=== PATIENT | female | born 1960 | race Caucasian/White ===

== ENCOUNTER 2021-03-29 10:45 | Emergency (ER) | payer SELFPAY ==
[2021-03-29 10:51] VITALS: BP 104/62; PULSE 77; RESP 17; TEMP 36.6; O2SAT 91; BMI 24.3
[2021-03-29 11:01] VITALS: BP 96/67; PULSE 83; RESP 17; O2SAT 93
--- NOTE | 2021-03-29 11:05 | ECG_ITS ---
[facility] Test Date: 2021-03-29 Pat Name: Lurdes Syed Department: Room: Gender: Female Cso: : 1960 Requested By: Jeffrey Yee Order Number: [id number] Nena Jennings MD: Alley Valles M.D. Measurements Intervals [place] Rate: 68 P: 20 MS: 168 QRS: 39 QRSD: 105 T: 56 QT: 427 QTc: 454 Interpretive Statements SINUS RHYTHM No previous ECG available for comparison Electronically Signed On 03-30-2021 13:18:38 PROPERTY UTILIZATION OFFICER by Alley Valles M.D. [id number]
--- NOTE | 2021-03-29 11:05 | XRR_ITS ---
PROCEDURE INFORMATION: Exam: XR Chest Exam date and time: 03/29/2021 11:05 AM Age: 60 years old Clinical indication: Shortness of breath; Additional info: SOB TECHNIQUE: Imaging protocol: XR of the chest. Views: 1 view. Total images: 1 COMPARISON: No relevant prior studies available. FINDINGS: Lungs: Diffuse coarse interstitial markings of the lungs felt to be chronic. No prior exams available for comparison. Trace atelectasis or scar noted in the left lung base. Pleural spaces: There is blunting of the right costophrenic angle, likely indicating a small pleural effusion versus chronic pleural thickening. Heart/Mediastinum: Unremarkable. No cardiomegaly. Bones/joints: Diffuse osteopenia noted. XR/XR chest 1V portable [id number] IMPRESSION: 1. Diffuse coarse interstitial markings of the lungs felt to be chronic. No prior exams available for comparison. 2. Trace atelectasis or scar noted in the left lung base. 3. There is blunting of the right costophrenic angle, likely indicating a small pleural effusion versus chronic pleural thickening. Radiation Dose CTDIVOL = (mGy): DLP = (mGy-cm)
--- NOTE | 2021-03-29 11:08 | ED_ITS ---
HPI - SOB/Dyspnea General: Chief Complaint: Shortness of Breath/Dyspnea Stated Complaint: SOB; WEAKNESS; COVID EXPOSURE Time Seen by Provider: 03/29/21 10:55 History of Present Illness: HPI Narrative: This patient presents to our emergency department because of progressive generalized fatigue and weakness and sensation of shortness of breath. She states her symptoms onset of Wednesday of this week with generalized body aches and low-grade fever and have progressed since that time. She denies any chest pain. She denies fevers. She is unimmunized against COVID-19. Her is currently in the intensive care unit due to COVID-19 related illness. He became ill on approximately 13 March. He is also unimmunized. She does not have a history of any significant comorbid medical conditions to include COPD, heart failure etc. She is a non-smoker. She states she has been eating and drinking some but feels extremely fatigued. She is currently living alone but does have family in the area. She states her pulse oximeter at home has been low as the high 80s. MD elicited complaint: shortness of breath Timing: progressively worsening Associated symptoms: Reports extremity pain; Deny abdominal pain, chest pain, dizziness, fever(s), nausea, palpitations, polydipsia, polyuria or vomiting Review of Systems Const: Reports: fatigue and malaise; Denies: fever(s), change in appetite or change in weight Eyes: Denies: change in vision ENMT: Denies: throat pain, odynophagia, mouth pain or dental pain Card: Denies: chest pain, palpitations, irregular heart rhythm or edema Resp: Reports: dyspnea; Denies: productive cough, non-productive cough, wheezing or stridor GI: Reports: diarrhea; Denies: abdominal pain, nausea or vomiting : Denies: flank pain, difficulty voiding or dysuria Musc: Reports: back pain, extremity pain and joint pain; Denies: neck pain Skin/Breast: Denies: rash Neuro: Denies: headache(s), dizziness, vertigo, confusion, behavioral changes or Slurred speech present Psych: Denies: anxiety, depression, mood swings or panic attacks Endo: Denies: polyuria, polydipsia or tired all the time Physical Exam Const: COMMON NORMALS: no acute distress, patient oriented x3 and alert HENMT: COMMON NORMALS: normocephalic and Normal external nose present HEAD & SCALP: normal to inspection and normocephalic FACE & SINUS: normal facial exam NOSE: Normal external nose present TEETH & GINGIVA: Yes other (Mask per protocol) Eye: COMMON NORMALS: Equal, round and reactive pupils present, EOMs intact bilaterally and conjunctivae normal CONJUNCTIVA: Yes conjunctivae normal PUPIL: Yes Equal, round and reactive pupils present Neck/C-Spine: COMMON NORMALS: full ROM, no lymphadenopathy, supple, no meningeal signs and no JVD Lymph: LYMPHATIC: no lymphadenopathy noted Chest: COMMONS NORMALS: normal inspection of the chest and normal palpation of entire chest wall Resp: COMMON NORMALS: normal respiratory effort, No retractions, No use of accessory muscles and clear to auscultation bilaterally AUSCULTATION: clear to auscultation bilaterally, no crackles, no rhonchi and no wheezes Cardio: COMMON NORMALS: no JVD, regular rate, regular rhythm, No murmurs pr esent (Cardio) and Peripheral pulses 2+ throughout RATE: regular rate RHYTHM: regular rhythm PERIPHERAL PULSES: Peripheral pulses 2+ throughout GI: COMMON NORMALS: Normal to inspection, nondistended, normoactive bowel sounds present, Soft to palpation, non-tender and no masses PALPATION: Yes Soft to palpation : COMMON NORMALS: Yes no CVA tenderness BLADDER/KIDNEY EXAM: Yes no CVA tenderness Back/Pelvis: COMMON NORMALS: no CVA tenderness, thoracic and lumbar spine normal to inspection, no thoracic nor lumbar tenderness and thoraco-lumbar ROM normal Extremity: COMMON NORMALS: normal to inspection, full ROM, capillary refill normal, no joint enlargement, no calf tenderness and no pedal edema Neuro: COMMON NORMALS: patient oriented x3, moves all extremities, no focal motor deficits and no sensory deficits noted SENSORIUM/ORIENTATION: Yes alert MENINGEAL SIGNS: Yes no meningeal signs Psych: COMMON NORMALS: mental status grossly normal, Normal thought process present and cooperative THOUGHT PROCESS: Normal thought process present Skin: COMMON NORMALS: no rashes or lesions noted, no wounds, turgor normal and no jaundice GENERAL SKIN EXAM: no rashes or lesions noted and turgor normal Course Reevaluation(s): Reevaluation #1: Patient qualifies for home oxygen at 2 L. We will go ahead and give her a dose of Decadron at this time. She will not qualify for monoclonal antibody due to her oxygen requirements. Time: 13:42 Reevaluation #2: The patient remains clinically stable. She easily corrects with 2 L of oxygen into the mid 90s at rest. Her laboratories are consistent with her COVID-19 diagnosis. Her D-dimer is slightly elevated but again that is consistent with diagnosis and I do not feel that additional imaging is indicated for thromboembolic disease at this time. She looks comfortable and is amenable to home treatment. I have reviewed the potential course in detail with the patient to include increasing oxygen requirements etc. and the need to return immediately to the emergency department for reevaluation and additional care as indicated. We will continue her on steroids for the next 7 days. She acknowledged our discussion. She is stable at this time. All return precautions were reviewed and acknowledged. Vital Signs: Vital signs: Vital Signs Temperature 98 F 03/29/21 10:51 Pulse Rate 70 03/29/21 12:59 Respiratory Rate 16 03/29/21 12:59 Blood Pressure 103/65 03/29/21 12:59 Pulse Oximetry 97 03/29/21 12:59 MDM - SOB/Dyspnea Lab Data: Labs: Lab Results 03/29/21 03/29/21 03/29/21 11:12 11:12 11:12 WBC 3.5 10^3/uL L 10^ 3/uL (4.0-10.0) RBC 4.24 10^6/uL 10^6 /uL (4.1-5.3) Hgb 12.1 g/dL g/dL (11.5-15.3) Hct 37.3 % % (37.0-47.0) MCV 88.0 fl fl (81-99) MCH 28.5 pg pg (28.0-34.0) MCHC 32.4 g/dL g/dL (30.0-36.0) RDW 13.4 % % (12.1-15.1) Plt Count 142 10^3/cmm 10^3 /cmm (130-400) MPV 10.1 fL fL (7.4-10.4) Neut % (Auto) 73.1 % % Lymph % (Auto) 18.5 % % [place] % (Auto) 7.8 % % Eos % (Auto) 0.0 % % Baso % (Auto) 0.3 % % Neut # (Auto) 2.53 10^3/uL 10^3 /uL (1.8-7.7) Lymph # (Auto) 0.6 10^3/uL L 10^ 3/uL (0.8-4.8) [place] # (Auto) 0.3 10^3/uL 10^3/ uL (0.2-0.9) Eos # (Auto) 0.0 10^3/uL 10^3/ uL (0.0-0.8) Baso # (Auto) 0.0 10^3/uL 10^3/ uL (0.0-0.1) Nucleated RBC % (a uto) 0 % % Nucleated RBCs # 0.0 /100WBC /100W BC D-Dimer 0.71 ug/mIFEU H u g/mIFEU (0-0.59) Sodium 129 mmol/L L mmol /L (136-145) Potassium 3.7 mmol/L mmol/L (3.5-5.1) Chloride 95 mmol/L L mmol/ L (98-107) Carbon Dioxide 20 mmol/L L mmol/ L (22-29) Anion Gap 17.7 (5-19) BUN 9 mg/dL mg/dL (8-23) Creatinine 0.7 mg/dL mg/dL (0.5-0.9) GFR Calculation 85.1 mL/min L mL/ min (90-130) Glucose 110 mg/dL mg/dL (65-115) Calculated Osmolal ity 267 mOsm/kg L mOs m/kg (285-295) Calcium 8.2 mg/dL L mg/dL (8.5-10.5) Magnesium 1.7 mg/dL mg/dL (1.7-2.3) Ferritin Total Bilirubin 0.4 mg/dL mg/dL (0.15-1.2) AST 36 U/L H U/L (0-32) ALT 34 U/L H U/L (0-33) Alkaline Phosphata se 91 IU/L IU/L (35-105) C-Reactive Protein Total Protein 6.5 g/dL L g/dL (6.6-8.7) Albumin 3.5 g/dL g/dL (3.5-5.2) Globulin 3.0 g/dL g/dL (1.3-4.6) Influenza Type A A g Influenza Type B A g SARS-CoV-2 Ag (Rap id) 03/29/21 03/29/21 03/29/21 11:12 11:15 11:15 WBC RBC Hgb Hct MCV MCH MCHC RDW Plt Count MPV Neut % (Auto) Lymph % (Auto) [place] % (Auto) Eos % (Auto) Baso % (Auto) Neut # (Auto) Lymph # (Auto) [place] # (Auto) Eos # (Auto) Baso # (Auto) Nucleated RBC % (a uto) Nucleated RBCs # D-Dimer Sodium Potassium Chloride Carbon Dioxide Anion Gap BUN Creatinine GFR Calculation Glucose Calculated Osmolal ity Calcium Magnesium Ferritin 862 ng/mL H ng/mL (15-150) Total Bilirubin AST ALT Alkaline Phosphata se C-Reactive Protein 30.3 mg/L H mg/L (0.0-4.9) Total Protein Albumin Globulin Influenza Type A A g Negative (Negative) Influenza Type B A g Negative (Negative) SARS-CoV-2 Ag (Rap id) Positive H (Negative) EKG Data^: EKG 1: Attestation: I personally reviewed and interpreted this EKG as follows: (EKG shows a ventricular rate of 68 bpm. Normal intervals normal axes. No acute ST- T wave changes noted at this time.) Discharge Plan Discharge Clinical Impression: COVID-19 Condition: Stable Prescriptions: New dexamethasone 6 mg tablet 6 mg PO DAILY Qty: 7 RF: 0 Discharge Orders: Discharge ED (Routine); Ordered 03/29/21 Ordered By: Jeffrey Yee Other Ambulatory Orders: DME: Oxygen (Order) Location: None Selected Ordered By: Jeffrey Yee Referrals: Stephen Mckeon JR, MD [Primary Care Provider] - Discharge Diet: Usual diet Discharge Activity: Increase activity as tolerated and Oxygen as instructed Patient Instructions: How to Recover from COVID-19 at Home (ED) Activity Restrictions/Additional Instructions: Ensure that you are drinking at least 64 ounces of water a day in addition to sports drinks and other protein drinks. Monitor your oxygen level using the pulse oximeter. Wear your oxygen if your pulse oximetry is less than 90%. You may also change positions of sleeping such as sleeping on one side or the other or sleeping on your stomach to help improve your oxygen level. If it anytime your have increasing concerns, increasing shortness of breath, or consistently below 90% even with your oxygen return to this emergency department immediately. Take the dexamethasone as prescribed. Coding Level of Care Code ED Putty Worker for Sonali Fwgayla Exam Comprehensive
[2021-03-29] MEDS: sodium chloride 0.9% 1,000 ML 999 ML IV (11:25)
[2021-03-29 11:40] LABS: Basophils % 0.3 %; Hematocrit 37.3 % (37.0-47.0); Hemoglobin 12.1 g/dL (11.5-15.3); Lymphocytes # 0.6 10^3/uL (0.8-4.8); Lymphocytes % 18.5 %; Mean Corpuscular HGB Conc 32.4 g/dL (30.0-36.0); Mean Corpuscular Hemoglobin 28.5 pg (28.0-34.0); Mean Platelet Volume 10.1 fL (7.4-10.4); Monocytes # 0.3 10^3/uL (0.2-0.9); Monocytes % 7.8 %; Neutrophils # 2.53 10^3/uL (1.8-7.7); Neutrophils % 73.1 %; Nucleated Red Blood Cells % 0 %; Platelet Count 142 10^3/cmm (130-400); Red Blood Count 4.24 10^6/uL (4.1-5.3); Red Cell Distribution Width 13.4 % (12.1-15.1); White Blood Count 3.5 10^3/uL (4.0-10.0)
[2021-03-29 11:51] VITALS: BP 105/65; PULSE 70; RESP 17; O2SAT 93
--- NOTE | 2021-03-29 11:52 | PC.NURSE ---
Pt placed on tabular typist upon being bedded in room.
[2021-03-29 11:55] LABS: D Dimer 0.71 ug/mIFEU (0-0.59)
[2021-03-29 12:00] LABS: Alanine Aminotransferase 34 U/L (0-33); Albumin Level 3.5 g/dL (3.5-5.2); Alkaline Phosphatase 91 IU/L (35-105); Anion Gap 17.7 (5-19); Aspartate Amino Transferase 36 U/L (0-32); Blood Urea Nitrogen 9 mg/dL (8-23); Calcium 8.2 mg/dL (8.5-10.5); Carbon Dioxide 20 mmol/L (22-29); Chloride 95 mmol/L (98-107); Glomerular Filtration Rate 85.1 mL/min (90-130); Glucose 110 mg/dL (65-115); Magnesium 1.7 mg/dL (1.7-2.3); Osmolality Calculated 267 mOsm/kg (285-295); Potassium 3.7 mmol/L (3.5-5.1); Sodium 129 mmol/L (136-145); Total Bilirubin 0.4 mg/dL (0.15-1.2); Total Protein 6.5 g/dL (6.6-8.7)
[2021-03-29 12:14] LABS: Influenza A by IFA Negative (Negative); Influenza B by IFA Negative (Negative); SARS Covid-2 Antigen Positive (Negative)
[2021-03-29 12:30] VITALS: O2SAT 88; O2SAT 92; O2SAT 93
[2021-03-29 12:32] LABS: C Reactive Protein 30.3 mg/L (0.0-4.9); Ferritin 862 ng/mL (15-150)
[2021-03-29] MEDS: dexamethasone 10 mg/mL INJ 6 MG IVP (12:55)
[2021-03-29 12:59] VITALS: BP 103/65; PULSE 70; RESP 16; O2SAT 97
[2021-03-29 14:08] VITALS: BP 102/68; PULSE 69; RESP 20; O2SAT 97
== END 2021-03-29 14:20 | disposition home or self-care (01) ==
PROVIDERS: Emergency Provider Emergency Medicine
DX: U07.1 COVID-19 (principal)
CPT/HCPCS: 71045; 80053; 82728; 83735; 85025; 85378; 86140; 87426; 87804; 93005; 96361; 96374; 99284; J1100; J7030

== ENCOUNTER 2021-04-01 08:18 | Emergency (ER) | payer SELFPAY ==
--- NOTE | 2021-04-01 08:21 | XR_ITS ---
WS: [id number] Exam: XR chest 1V portable [id number] Date/Time of Exam: 04/01/2021 8:38 AM Reason For Exam: COVID Comparison 03/29/2021. Patchy groundglass infiltrates in the right upper lobe and lingula have increased. Remaining lung fie lds are clear. No pneumothorax or pleural effusion. Normal cardiomediastinal silhouette. Regional bon y structures are intact. XR/XR chest 1V portable [id number] IMPRESSION: 1. Increasing groundglass infiltrates in the right upper lobe and lingula since prior study.
[2021-04-01 08:30] VITALS: BP 92/50; PULSE 81; RESP 18; TEMP 36.9; O2SAT 96; BMI 24.3
[2021-04-01 08:37] VITALS: BP 92/50; PULSE 81; O2SAT 97
[2021-04-01 08:38] VITALS: O2SAT 97
[2021-04-01 09:16] LABS: Hematocrit 40.6 % (37.0-47.0); Hemoglobin 13.4 g/dL (11.5-15.3); Lymphocytes % 22.8 %; Mean Corpuscular Hemoglobin 29.5 pg (28.0-34.0); Mean Corpuscular Volume 89.2 fl (81-99); Mean Platelet Volume 9.9 fL (7.4-10.4); Monocytes # 0.2 10^3/uL (0.2-0.9); Neutrophils # 3.06 10^3/uL (1.8-7.7); Neutrophils % 72.7 %; Nucleated Red Blood Cells % 0 %; Platelet Count 229 10^3/cmm (130-400); Red Blood Count 4.55 10^6/uL (4.1-5.3); Red Cell Distribution Width 13.5 % (12.1-15.1); White Blood Count 4.2 10^3/uL (4.0-10.0)
[2021-04-01 09:29] LABS: Alanine Aminotransferase 90 U/L (0-33); Albumin Level 3.8 g/dL (3.5-5.2); Alkaline Phosphatase 112 IU/L (35-105); Anion Gap 17.7 (5-19); Aspartate Amino Transferase 63 U/L (0-32); Blood Urea Nitrogen 12 mg/dL (8-23); C Reactive Protein 49.2 mg/L (0.0-4.9); Calcium 8.7 mg/dL (8.5-10.5); Carbon Dioxide 22 mmol/L (22-29); Chloride 98 mmol/L (98-107); Globulin 3.2 g/dL (1.3-4.6); Glomerular Filtration Rate 72.9 mL/min (90-130); Glucose 113 mg/dL (65-115); Osmolality Calculated 279 mOsm/kg (285-295); Potassium 3.7 mmol/L (3.5-5.1); Sodium 134 mmol/L (136-145); Total Bilirubin 0.4 mg/dL (0.15-1.2)
--- NOTE | 2021-04-01 09:44 | CT_ITS ---
WS: [id number] CTA OF THE CHEST WITH PULMONARY EMBOLISM PROTOCOL TECHNIQUE: High-resolution contrast enhanced CTA of the chest with coronal and sagittal reformatted i mages with pulmonary embolism protocol. MIP images are also reviewed. CLINICAL INFORMATION: covid/hypoxia COMPARISON: None. DLP: 533.[address] scans at [facility] use at least one of these dose optimization techniques: automated e xposure control; mA and/or kV adjustment per patient size (includes targeted exams where dose is matc hed to clinical indication); or iterative reconstruction. FINDINGS: Proximal main pulmonary arteries are normal. Normal segmental and subsegmental pulmonary arteries. No rmal caliber thoracic aorta. Mild chronic emphysematous changes. Compressive atelectasis in the lung bases. Patchy groundglass infiltrates in the right greater than left upper lobes and both lower lobes . Recommend correlation for viral pneumonia. No pleural fluid. No axillary lymphadenopathy. Cholelithiasis. Adrenal glands are normal. Small esophageal hiatal hernia. CT/CT angio chest PE protcl [id number] IMPRESSION: 1. No evidence of pulmonary embolus. 2. Patchy right greater than left upper lobe and bilateral lower lobe groundgl ass infiltrates with compressive atelectasis in the lung bases. Recommend corre lation for viral pneumonia. 3. Cholelithiasis.
--- NOTE | 2021-04-01 09:48 | W.ED.COVID ---
HPI - COVID General: Chief Complaint: COVID symptoms Stated Complaint: WEAKNESS/ SOB/ COVID + Time Seen by Provider: 04/01/21 08:21 Triage information: Has fever, cough or shortness of breath. Exposure to COVID + person last 14 days History of Present Illness: HPI Narrative: 60-year-old female presents emergency room complaining of weakness and increasing shortness of breath inability to manage her ADLs. She is complaining of pain in her upper back. She is known to be Covid positive based on the rapid test that was done on 03/29 she was discharged home on oxygen. Oxygen sats have been decreasing and she increased her oxygen to 4 L by nasal cannula from 2 L. MD complaint: known COVID positive Prior covid testing: yes, results known Prior testing date: 03/29/21 COVID 19 common symptoms: positive fever(s), chills, cough, non-productive cough, dyspnea, fatigue, body aches, loss of sense of smell and/or taste, throat pain, nasal congestion, nausea, vomiting, diarrhea and chest tightness; negative productive cough or headache(s) COVID 19 other sytmptoms: positive requiring oxygen and requiring more oxygen; negative chest pain Onset (ago): day(s) Severity: moderate Treatment prior to arrival: none COVID Results: SARS-CoV-2 Antigen (Rapid) Positive (Negative) H 03/29/21 11:15 03/29/21 Review of Systems Const: Reports: fever(s), chills, body aches and fatigue ENMT: Reports: throat pain and nasal congestion Card: Denies: chest pain, edema, dyspnea on exertion or orthopnea Resp: Reports: dyspnea and non-productive cough; Denies: productive cough GI: Reports: nausea, vomiting and diarrhea : Denies: flank pain, difficulty voiding, dysuria, urinary frequency or urinary urgency Skin/Breast: Denies: rash or pruritus Neuro: Denies: headache(s) Physical Exam Const: COMMON NORMALS: no acute distress GENERAL APPEARANCE: cooperative and comfortable ORIENTATION/CONSCIOUSNESS: Yes awake, Yes oriented to person, Yes oriented to place and Yes oriented to time HENMT: COMMON NORMALS: normocephalic, atraumatic and hearing grossly normal bilaterally HEAD & SCALP: normocephalic and atraumatic Neck/C-Spine: COMMON NORMALS: no JVD Resp: AUSCULTATION: rhonchi and wheezes (Right greater than the left) Cardio: COMMON NORMALS: no JVD, regular rate, regular rhythm and No murmurs present (Cardio) RATE: regular rate RHYTHM: regular rhythm GI: COMMON NORMALS: Soft to palpation and No hepatosplenomegaly present AUSCULTATION: Yes normoactive bowel sounds PALPATION: Yes Soft to palpation, No Tenderness to palpation present (GI), No Guarding due to palpation present (GI) and Yes No hepatosplenomegaly present Extremity: COMMON NORMALS: normal to inspection, capillary refill normal, no clubbing, cyanosis or edema, no calf tenderness and no pedal edema Neuro: SENSORIUM/ORIENTATION: Yes oriented to person, Yes oriented to place and Yes oriented to time Skin: COMMON NORMALS: no rashes or lesions noted GENERAL SKIN EXAM: no rashes or lesions noted Course Vital Signs: Vital signs: Vital Signs Temperature 98.4 F 04/01/21 08:30 Pulse Rate 84 04/01/21 13:27 Respiratory Rate 18 04/01/21 08:30 Blood Pressure 101/64 04/01/21 13:27 Pulse Oximetry 98 04/01/21 13:27 MDM - COVID MDM Narrative: Medical decision making narrative: Labs imaging and EKG reviewed. Patient is maintaining good sats on 3 L/min by nasal cannula. Her CRP is only 45 and there is no evidence of PE. Imaging does not show significant involvement of infiltrates. At this point recommend continued supportive cares promethazine as needed continue oxygen support monitor sats. His sats are less than 90% while at rest return to the emergency room. Lab Data: Labs: Lab Results 04/01/21 04/01/21 04/01/21 08:54 08:54 10:09 WBC 4.2 10^3/uL 10^3/ uL (4.0-10.0) RBC 4.55 10^6/uL 10^6 /uL (4.1-5.3) Hgb 13.4 g/dL g/dL (11.5-15.3) Hct 40.6 % % (37.0-47.0) MCV 89.2 fl fl (81-99) MCH 29.5 pg pg (28.0-34.0) MCHC 33.0 g/dL g/dL (30.0-36.0) RDW 13.5 % % (12.1-15.1) Plt Count 229 10^3/cmm 10^3 /cmm (130-400) MPV 9.9 fL fL (7.4-10.4) Neut % (Auto) 72.7 % % Lymph % (Auto) 22.8 % % [place] % (Auto) 4.0 % % Eos % (Auto) 0.0 % % Baso % (Auto) 0.0 % % Neut # (Auto) 3.06 10^3/uL 10^3 /uL (1.8-7.7) Lymph # (Auto) 1.0 10^3/uL 10^3/ uL (0.8-4.8) [place] # (Auto) 0.2 10^3/uL 10^3/ uL (0.2-0.9) Eos # (Auto) 0.0 10^3/uL 10^3/ uL (0.0-0.8) Baso # (Auto) 0.0 10^3/uL 10^3/ uL (0.0-0.1) Nucleated RBC % (a uto) 0 % % Nucleated RBCs # 0.0 /100WBC /100W BC Specimen Type Arterial Sample Site Radial, right ABG pH 7.41 (7.35-7.45) ABG pCO2 34.3 mmHg L mmHg (35-45) ABG pO2 97.9 mmHg mmHg (80.0-100.0) ABG HCO3 21.9 mmol/L L mmo l/L (22-26) ABG O2 Saturation 97.9 ABG Base Excess -2.1 mmol/L L mmo l/L (-2.0-2.0) Patrice Test Pos A-a O2 Gradient 1.0 mmHg L mmHg (5-10) Hematocrit 36.8 % L % (37-47) Hgb O2 Saturation 96.6 % % (95-100) Carboxyhemoglobin 0.3 %THgb L %THgb (0.4-20.1) Methemoglobin 1.0 % % (0.4-1.5) Total Hemoglobin 12.0 g/dL g/dL (12-16) Ionized Calcium 1.2 mmol/L mmol/L (1.1-1.4) O2 Delivery Device Nc O2 Liters/Min 3.0 % % Gauge And Weigh Machine Operator ID [id number] Sodium 134 mmol/L L mmol /L 132.0 mmol/L mmol /L (136-145) (131-143) Potassium 3.7 mmol/L mmol/L 3.7 mmol/L mmol/L (3.5-5.1) (3.5-5.0) Chloride 98 mmol/L mmol/L (98-107) Carbon Dioxide 22 mmol/L mmol/L (22-29) Anion Gap 17.7 (5-19) BUN 12 mg/dL mg/dL (8-23) Creatinine 0.8 mg/dL mg/dL (0.5-0.9) GFR Calculation 72.9 mL/min L mL/ min (90-130) Glucose 113 mg/dL mg/dL 103.0 mg/dL mg/dL (65-115) (70-115) Calculated Osmolal ity 279 mOsm/kg L mOs m/kg (285-295) Calcium 8.7 mg/dL mg/dL (8.5-10.5) Total Bilirubin 0.4 mg/dL mg/dL (0.15-1.2) AST 63 U/L H U/L (0-32) ALT 90 U/L H U/L (0-33) Alkaline Phosphata se 112 IU/L H IU/L (35-105) C-Reactive Protein 49.2 mg/L H mg/L (0.0-4.9) Total Protein 7.0 g/dL g/dL (6.6-8.7) Albumin 3.8 g/dL g/dL (3.5-5.2) Globulin 3.2 g/dL g/dL (1.3-4.6) COVID Results: SARS-CoV-2 Antigen (Rapid) Positive (Negative) H 03/29/21 11:15 03/29/21 Discharge Plan Discharge Patient Disposition: Home Clinical Impression: COVID-19 Condition: Stable Prescriptions: New promethazine 25 mg tablet 25 mg PO Q6H PRN (Reason: nausea and vomiting) Qty: 20 RF: 0 No Action dexamethasone 6 mg tablet 6 mg PO DAILY Qty: 7 RF: 0 Discharge Orders: Discharge ED (Routine); Ordered 04/01/21 Ordered By: Tyler Ceballos Discharge Activity: Increase activity as tolerated Patient Instructions: Opioid Safety Activity Restrictions/Additional Instructions: Continue oxygen at 3 L/min monitor home oxygen saturations return if you have oxygen saturations at rest less than 90%. Coding Level of Care Code ED Hammer Heater for Sonali Fwd Exam Comprehensive
[2021-04-01] MEDS: iohexol 350 mg/mL 100 mL Btl IV (10:09)
[2021-04-01 10:21] LABS: ABG PCO2 34.3 mmHg (35-45); ABG PH Result 7.41 (7.35-7.45); Arterial Blood Gas Hematocrit 36.8 % (37-47); Base Excess ABG -2.1 mmol/L (-2.0-2.0); Blood Gas Allen Test Pos; Blood Gas Sample Site Radial, right; Blood Gas Sample Type Arterial; Carboxyhemoglobin 0.3 %THgb (0.4-20.1); HCO3 ABG 21.9 mmol/L (22-26); HGB O2 Sat 96.6 % (95-100); Ionized Calcium Level - ABG 1.2 mmol/L (1.1-1.4); Oxygen Device NC; Oxygen Saturation ABG 97.9; PO2 ABG 97.9 mmHg (80.0-100.0); Potassium Level - ABG 3.7 mmol/L (3.5-5.0)
[2021-04-01] MEDS: sodium chloride 0.9% 1,000 ML 999 ML IV (10:39)
[2021-04-01 10:43] VITALS: BP 100/55; PULSE 75; O2SAT 95
[2021-04-01 13:27] VITALS: BP 101/64; PULSE 84; O2SAT 98
== END 2021-04-01 13:29 | disposition home or self-care (01) ==
PROVIDERS: Emergency Provider Family Medicine
DX: U07.1 COVID-19 (principal)
CPT/HCPCS: 36600; 71045; 71275; 80051; 80053; 82330; 82805; 85025; 86140; 87070; 87205; 96360; 99283; J7030; Q9967

== ENCOUNTER 2021-04-03 09:32 | Inpatient (IN) | payer SELFPAY ==
[2021-04-03] VITALS (11 sets, daily range): BP systolic 97–104; BP diastolic 53–63; PULSE 79–112; RESP 16–24; TEMP 36.7–37.7; O2SAT 90–94; BMI 24.3
--- NOTE | 2021-04-03 09:47 | XR_ITS ---
WS: [id number] Exam: XR chest 1V portable [id number] Date/Time of Exam: 04/03/2021 9:50 AM Reason For Exam: COVID Comparison 04/01/2021. Bilateral pulmonary infiltrates have increased since the prior study. The lungs remain fully inflate d. No pleural effusions or pneumothorax. Normal cardiomediastinal structures. Monitoring leads superi mpose the chest. Bony structures are intact. XR/XR chest 1V portable [id number] IMPRESSION: 1. Bilateral pulmonary infiltrates have increased somewhat since prior study.
[2021-04-03 09:59] LABS: Hematocrit 42.9 % (37.0-47.0); Lymphocytes # 0.7 10^3/uL (0.8-4.8); Lymphocytes % 10.8 %; Mean Corpuscular HGB Conc 32.6 g/dL (30.0-36.0); Mean Platelet Volume 9.3 fL (7.4-10.4); Monocytes # 0.2 10^3/uL (0.2-0.9); Monocytes % 3.2 %; Neutrophils # 5.16 10^3/uL (1.8-7.7); Neutrophils % 85.8 %; Nucleated Red Blood Cells % 0 %; Platelet Count 288 10^3/cmm (130-400); Red Blood Count 4.82 10^6/uL (4.1-5.3); Red Cell Distribution Width 13.6 % (12.1-15.1)
--- NOTE | 2021-04-03 10:16 | W.ED.COVID ---
HPI - COVID General: Chief Complaint: COVID symptoms Stated Complaint: COVID +, SOB Time Seen by Provider: 04/03/21 09:40 Triage information: Has fever, cough or shortness of breath. Exposure to COVID + person last 14 days History of Present Illness: HPI Narrative: 60-year-old female who initially started having symptoms approximately 7 days ago. She tested positive on 03/29/2021. She was discharged home on oxygen. We seen her 2 days ago she was needing 3 L by nasal cannula at that time remainder of her labs were unremarkable she did not have a PE. She was adequately maintained on outpatient oxygen and discharged home. She still complaining of shortness of breath with activities as well as nausea and loss of appetite. At rest her oxygen saturations remain above 90% at times she will drop below 90 with activity. Has significant shortness of breath with minimal activity. No chest pain not having any productive cough. MD complaint: known COVID positive Prior testing date: 03/29/21 COVID 19 common symptoms: positive fever(s), chills, cough, non-productive cough, dyspnea, fatigue, body aches, loss of sense of smell and/or taste, nasal congestion and nausea COVID 19 other sytmptoms: positive requiring oxygen; negative chest pain Onset (ago): day(s) (7) Severity: mild Treatment prior to arrival: steroids and oxygen COVID Results: SARS-CoV-2 Antigen (Rapid) Positive (Negative) H 03/29/21 11:15 03/29/21 Review of Systems Const: Reports: fever(s), chills, body aches and fatigue ENMT: Reports: nasal congestion Card: Denies: chest pain, edema, dyspnea on exertion or orthopnea Resp: Reports: dyspnea and non-productive cough GI: Reports: nausea : Denies: flank pain, difficulty voiding, dysuria, urinary frequency or urinary urgency Skin/Breast: Denies: rash or pruritus Physical Exam Const: GENERAL APPEARANCE: cooperative and comfortable ORIENTATION/CONSCIOUSNESS: Yes awake, Yes oriented to person, Yes oriented to place and Yes oriented to time HENMT: COMMON NORMALS: normocephalic, atraumatic, hearing grossly normal bilaterally, external ears normal, EAC's normal, TM's normal bilaterally, Normal nasal mucous membranes and turbinates present, moist oral mucous membranes and oropharynx normal HEAD & SCALP: normocephalic and atraumatic NOSE: Normal nasal mucous membranes and turbinates present EXTERNAL EAR: Yes external ears normal EXTERNAL AUDITORY CANAL: EAC's normal TYMPANIC MEMBRANE: TM's normal bilaterally Neck/C-Spine: COMMON NORMALS: no JVD Resp: AUSCULTATION: crackles and wheezes Cardio: COMMON NORMALS: no JVD, regular rate, regular rhythm and No murmurs present (Cardio) RATE: regular rate RHYTHM: regular rhythm GI: COMMON NORMALS: Soft to palpation and No hepatosplenomegaly present AUSCULTATION: Yes normoactive bowel sounds PALPATION: Yes Soft to palpation, No Tenderness to palpation present (GI), No Guarding due to palpation present (GI) and Yes No hepatosplenomegaly present Extremity: COMMON NORMALS: normal to inspection, capillary refill normal, no clubbing, cyanosis or edema, no calf tenderness and no pedal edema Neuro: SENSORIUM/ORIENTATION: Yes oriented to person, Yes oriented to place and Yes oriented to time Skin: COMMON NORMALS: no rashes or lesions noted GENERAL SKIN EXAM: no rashes or lesions noted Course Vital Signs: Vital signs: Vital Signs Temperature 98.4 F 04/03/21 09:33 Pulse Rate 82 04/03/21 09:33 Respiratory Rate 22 H 04/03/21 09:33 Blood Pressure 101/53 04/03/21 09:33 Pulse Oximetry 90 04/03/21 09:48 MDM - COVID MDM Narrative: Medical decision making narrative: Reviewed lab work. Her PO2 was down slightly and her CRP is climbing. Chest x-ray shows may be very slow slight worsening however she has been getting IV fluids in the field with EMS that may have complicated matters a bit. She is already been on dexamethasone. She is obviously not a candidate for monoclonal antibodies. We titrated her oxygen back down and on 3 L she is maintaining her sats good. This is her third visit to the ER for this COVID infection. We will go ahead and admit her started on remdesivir continue IV dexamethasone and oxygen support discussed Dr. Hurd he is in agreement. Lab Data: Labs: Lab Results 04/03/21 04/03/21 04/03/21 09:50 09:50 10:15 WBC 6.0 10^3/uL 10^3/ uL (4.0-10.0) RBC 4.82 10^6/uL 10^6 /uL (4.1-5.3) Hgb 14.0 g/dL g/dL (11.5-15.3) Hct 42.9 % % (37.0-47.0) MCV 89.0 fl fl (81-99) MCH 29.0 pg pg (28.0-34.0) MCHC 32.6 g/dL g/dL (30.0-36.0) RDW 13.6 % % (12.1-15.1) Plt Count 288 10^3/cmm 10^3 /cmm (130-400) MPV 9.3 fL fL (7.4-10.4) Neut % (Auto) 85.8 % % Lymph % (Auto) 10.8 % % [place] % (Auto) 3.2 % % Eos % (Auto) 0.0 % % Baso % (Auto) 0.0 % % Neut # (Auto) 5.16 10^3/uL 10^3 /uL (1.8-7.7) Lymph # (Auto) 0.7 10^3/uL L 10^ 3/uL (0.8-4.8) [place] # (Auto) 0.2 10^3/uL 10^3/ uL (0.2-0.9) Eos # (Auto) 0.0 10^3/uL 10^3/ uL (0.0-0.8) Baso # (Auto) 0.0 10^3/uL 10^3/ uL (0.0-0.1) Nucleated RBC % (a uto) 0 % % Nucleated RBCs # 0.0 /100WBC /100W BC Specimen Type Arterial Sample Site Brachial, right ABG pH 7.51 H (7.35-7.45) ABG pCO2 27.2 mmHg L mmHg (35-45) ABG pO2 56.9 mmHg L mmHg (80.0-100.0) ABG HCO3 21.5 mmol/L L mmo l/L (22-26) ABG O2 Saturation 92.0 ABG Base Excess -0.5 mmol/L mmol/ L (-2.0-2.0) Patrice Test N/a A-a O2 Gradient 7.9 mmHg mmHg (5-10) Hematocrit 36.6 % L % (37-47) Hgb O2 Saturation 87.9 % L % (95-100) Carboxyhemoglobin 3.0 %THgb %THgb (0.4-20.1) Methemoglobin 1.4 % % (0.4-1.5) Total Hemoglobin 11.9 g/dL L g/dL (12-16) Ionized Calcium 1.2 mmol/L mmol/L (1.1-1.4) O2 Delivery Device Nc O2 Liters/Min 3.0 % % Education Sales Consultant ID Gd Sodium 132 mmol/L L mmol /L 133.0 mmol/L mmol /L (136-145) (131-143) Potassium 4.0 mmol/L mmol/L 3.8 mmol/L mmol/L (3.5-5.1) (3.5-5.0) Chloride 97 mmol/L L mmol/ L (98-107) Carbon Dioxide 23 mmol/L mmol/L (22-29) Anion Gap 16.0 (5-19) BUN 11 mg/dL mg/dL (8-23) Creatinine 0.7 mg/dL mg/dL (0.5-0.9) GFR Calculation 85.1 mL/min L mL/ min (90-130) Glucose 112 mg/dL mg/dL 112.0 mg/dL mg/dL (65-115) (70-115) Calculated Osmolal ity 274 mOsm/kg L mOs m/kg (285-295) Calcium 8.4 mg/dL L mg/dL (8.5-10.5) Total Bilirubin 0.5 mg/dL mg/dL (0.15-1.2) AST 132 U/L H U/L (0-32) ALT 187 U/L H U/L (0-33) Alkaline Phosphata se 167 IU/L H IU/L (35-105) C-Reactive Protein 124.2 mg/L H mg/L (0.0-4.9) Total Protein 6.8 g/dL g/dL (6.6-8.7) Albumin 3.4 g/dL L g/dL (3.5-5.2) Globulin 3.4 g/dL g/dL (1.3-4.6) COVID Results: SARS-CoV-2 Antigen (Rapid) Positive (Negative) H 03/29/21 11:15 03/29/21 Discharge Plan Discharge Patient Disposition: Admitted As Inpatient Clinical Impression: COVID-19 Condition: Stable Prescriptions: No Action dexamethasone 6 mg tablet 6 mg PO DAILY Qty: 7 RF: 0 promethazine 25 mg tablet 25 mg PO Q6H PRN (Reason: nausea and vomiting) Qty: 20 RF: 0 Coding Level of Care Code 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
[2021-04-03 10:23] LABS: Alanine Aminotransferase 187 U/L (0-33); Albumin Level 3.4 g/dL (3.5-5.2); Alkaline Phosphatase 167 IU/L (35-105); Aspartate Amino Transferase 132 U/L (0-32); Blood Urea Nitrogen 11 mg/dL (8-23); C Reactive Protein 124.2 mg/L (0.0-4.9); Calcium 8.4 mg/dL (8.5-10.5); Carbon Dioxide 23 mmol/L (22-29); Chloride 97 mmol/L (98-107); Globulin 3.4 g/dL (1.3-4.6); Glomerular Filtration Rate 85.1 mL/min (90-130); Glucose 112 mg/dL (65-115); Osmolality Calculated 274 mOsm/kg (285-295); Sodium 132 mmol/L (136-145); Total Bilirubin 0.5 mg/dL (0.15-1.2); Total Protein 6.8 g/dL (6.6-8.7)
[2021-04-03 10:34] LABS: ABG PCO2 27.2 mmHg (35-45); ABG PH Result 7.51 (7.35-7.45); Alveolar-Arterial Oxygen Gradi 7.9 mmHg (5-10); Arterial Blood Gas Hematocrit 36.6 % (37-47); Base Excess ABG -0.5 mmol/L (-2.0-2.0); Blood Gas Operator Identificat GD; Blood Gas Sample Site Brachial, right; Blood Gas Sample Type Arterial; HCO3 ABG 21.5 mmol/L (22-26); HGB O2 Sat 87.9 % (95-100); Ionized Calcium Level - ABG 1.2 mmol/L (1.1-1.4); Methemoglobin 1.4 % (0.4-1.5); Oxygen Device NC; PO2 ABG 56.9 mmHg (80.0-100.0); Potassium Level - ABG 3.8 mmol/L (3.5-5.0); Total Hemoglobin 11.9 g/dL (12-16)
[2021-04-03] MEDS: dexamethasone 10 mg/mL INJ 6 MG IVP (11:14)
--- NOTE | 2021-04-03 12:25 | PC.NURSE ---
Report called to floor, given to SHANE Rice
--- NOTE | 2021-04-03 12:53 | PM.HP ---
Providers/Chief Complaint Admitting Physician: Clifford Hurd MD Chief Complaint: COVID +, SOB History of Present Illness Lurdes Syed is a 60 year old female who presents to the hospital with testing positive for Covid on March 29. She had been ill since around the . Symptoms include cough, fever, shortness of breath, fatigue and malaise. She was originally started on oxygen on the , and with worsening symptomatology had been back to the ER on the as well as today. She reports lately she has been losing consciousness with exertion. This has occurred over the last 3 to 4 days. She reports she has been trying to continue to eat and drink but it has been difficult. She is not vaccinated, nor has she had Covid in the past. is ill with Covid as well. Review of Systems General: Reports: 10 or more systems reviewed and unremarkable except in HPI and below Const: Reports: fever(s), chills and fatigue Eyes: Denies: change in vision ENMT: Denies: throat pain Card: Reports: syncope; Denies: chest pain Resp: Reports: dyspnea and non-productive cough GI: Denies: abdominal pain, nausea or vomiting : Denies: flank pain Musc: Denies: neck pain Skin/Breast: Denies: rash Neuro: Denies: headache(s) Psych: Denies: anxiety or depression Endo: Denies: polyuria Ty/Lymph: Denies: easy bruising All/Imm: Denies: urticaria Medications/Allergies Home Medications Medication Instructions Recorded Confirmed Last Taken Type dexamethasone 6 mg PO DAILY #7 tab 03/29/21 04/03/21 04/02/21 Rx promethazine 25 mg PO Q6H PRN #20 tab 04/01/21 04/03/21 Unknown Rx Vitamin D3 2 - 3 cap PO DAILY 04/03/21 04/03/21 Unknown History acetaminophen [Tylenol Ex Str 1,000 mg PO Q4H PRN 04/03/21 04/03/21 04/03/21 09:00 History Rapid Release] ascorbic acid (vitamin C) [Vitamin 500 mg PO DAILY 04/03/21 04/03/21 04/02/21 History C] zinc 50 mg PO DAILY 04/03/21 04/03/21 04/02/21 History Allergies Allergy/AdvReac Type Severity Reaction Status Date / Time sulfamethoxazole Allergy ALGY-Rash Verified 04/03/21 10:59 [From Bactrim] trimethoprim [From Bactrim] Allergy ALGY-Rash Verified 04/03/21 10:59 PFSH Acute PFSH: Surgical History (Updated 04/03/21 @ 13:50 by Clifford Hurd MD) History of tubal ligation Family History (Updated 04/03/21 @ 13:50 by Clifford Hurd MD) Other Cancer Social History (Updated 04/03/21 @ 13:50 by Clifford Hurd MD) Smoking and tobacco status: never smoked Alcohol intake: never Supplemental PFSH Information: Denies any significant past medical history Vitals/I&O/Wt Last Vital Signs Temp 98.4 F 04/03/21 09:33 Pulse 83 04/03/21 11:01 Resp 24 H 04/03/21 11:01 BP 100/53 04/03/21 11:01 Pulse Ox 90 04/03/21 11:01 Weight last 48 hrs Weight 70.307 kg Physical Exam Narrative: EXAM NARRATIVE: General exam is a female, no respiratory distress on oxygen. HEENT: Atraumatic normocephalic. Oropharynx clear. Neck is supple no lymphadenopathy or thyromegaly Cardiovascular regular rate and rhythm, no murmur Lungs few dry crackles bilaterally Abdomen is soft, positive bowel sounds. No obvious organomegaly exam is deferred Extremities no cyanosis clubbing or edema, cap refill brisk Skin no rash Neuro no obvious focal deficits. Data : 04/03/21 09:50 04/03/21 09:50 Other data: ABG on 3 L demonstrated pH 7.51, PCO2 27, PO2 57 LFTs demonstrated a normal bilirubin, AST of 132, ALT 187, alk phos 167. Creatinine kinase ordered and pending CRP 124, up from 49 on April 01 Chest x-ray demonstrates bilateral pulmonary infiltrates worse than previous image. CTA chest April 01 demonstrated some cholelithiasis, no evidence of cholecystitis bilateral infiltrates consistent with Covid, no pulmonary embolism EKG demonstrates normal sinus rhythm and is a normal EKG. A&P Assessment and plan (1) Pneumonia due to COVID-19 virus: Associated with hypoxia Continue remdesivir initiated in the emergency department Continue dexamethasone. Note the patient has been on this since the , orally Repeat CRP tomorrow. If clinically appears to be progressively worsening consideration for Actemra or baricitinib. Check pro calcitonin Pulmonary toilet, incentive spirometry Prone when possible Combivent 4 times daily Doxycycline empirically for now, although doubt bacterial infection Status: Acute Additional A&P Information Reported syncope. This may have been due to hypoxia. Telemetry while in the hospital. Transaminitis, likely secondary to Covid. Continue to follow. Without any abdominal symptomatology doubt this is related to gallstones Cholelithiasis. No evidence of cholecystitis currently. Full code Lovenox for DVT prophylaxis Attestations Medical Necessity Statement*: Will need greater than 2 midnight stay for treatment of COVID-19 pneumonia associated with hypoxia. 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
[2021-04-03 13:46] LABS: Procalcitonin 0.09 ng/mL (0-0.5)
[2021-04-03 13:59] LABS: Creatine Phosphokinase 38 U/L (26-192)
[2021-04-03] MEDS: enoxaparin 40 mg/0.4 mL Syringe SUBCUT (14:08)
--- NOTE | 2021-04-03 14:16 | PC.CHAP ---
Pastoral Care Encounter/Spiritual Assessment Type of Contact [] Declined videotape editor visit [] Patient/Family/Request visit [] Outpatient visit [] Follow-up visit [] Physician referral [] Code/Alert [] Routine visit [] Staff referral [] Actively dying [] Patient sleeping [] Family support [] [] Out of room [] Palliative care [] [] Receiving care in room [] Pre-surgical visit [] Trauma [] Long length of stay [] ICU visit [x] Other: covid Relational/Emotional Strength [] Patient feels connected with others/family/visitors/staff [] Distress [] Loneliness/isolation [] Abandonment Spirituality of Patient [] Person of Karli [] Attends Hindu of their Karli [] Believes in Prayer [] Reads Bible or Buddhist materials [] There are Spiritual issues to be addressed Distribution Associate Interventions [] Prayer [] Active listening [] Non-anxious presence [] Spiritual/emotional support [] Crisis/trauma care [] Spiritual counseling [] Bereavement support [] Provided bereavement packet [] Provided Bible/devotional materials [] Provided toy/stuffed animal, coloring book to patient or family member [] Provided Communion [] Anointing/[place] [] Salvation [] Completed spiritual assessment [] Other: Impact on Illness or Injury [] Angry [] Fearful [] Anxious [] Often cries [] Exhaustion [] Unable to work [] Unable to attend orthodox [] Unable to walk/stand [] Unable to read [] Unable to drive [] Unable to eat/drink [] Unable to sleep [] Unable to be with family [] Patient intubated [] Other: Summary covid Time spent with patient 5 mins
[2021-04-03] MEDS: remdesivir 200 MG in sodium chloride 0.9% (100 ml) 60 ML 100 MG IV (16:28)
[2021-04-03] MEDS: lanolin oint 7 gm 1 APPLIC TOPICAL (16:50)
[2021-04-03] MEDS: doxycycline 100 mg Tablet PO (18:15)
--- NOTE | 2021-04-03 19:00 | PC.NURSE ---
Report to Brunilda LYNN at this time.
[2021-04-03] MEDS: acetaminophen 325 mg Tablet 650 MG PO (20:17)
[2021-04-04] VITALS (12 sets, daily range): BP systolic 90–102; BP diastolic 52–63; PULSE 73–81; RESP 16–18; TEMP 36.4–36.8; O2SAT 89–96
[2021-04-04 05:57] LABS: Hematocrit 38.6 % (37.0-47.0); Hemoglobin 12.6 g/dL (11.5-15.3); Lymphocytes # 0.8 10^3/uL (0.8-4.8); Mean Corpuscular HGB Conc 32.6 g/dL (30.0-36.0); Mean Corpuscular Hemoglobin 28.8 pg (28.0-34.0); Mean Corpuscular Volume 88.1 fl (81-99); Mean Platelet Volume 9.4 fL (7.4-10.4); Monocytes # 0.2 10^3/uL (0.2-0.9); Monocytes % 5.1 %; Neutrophils # 3.44 10^3/uL (1.8-7.7); Neutrophils % 76.2 %; Nucleated Red Blood Cells % 0 %; Platelet Count 273 10^3/cmm (130-400); Red Blood Count 4.38 10^6/uL (4.1-5.3); Red Cell Distribution Width 13.6 % (12.1-15.1); White Blood Count 4.5 10^3/uL (4.0-10.0)
[2021-04-04 06:28] LABS: Alanine Aminotransferase 147 U/L (0-33); Albumin Level 3.3 g/dL (3.5-5.2); Alkaline Phosphatase 157 IU/L (35-105); Anion Gap 17.4 (5-19); Aspartate Amino Transferase 77 U/L (0-32); Blood Urea Nitrogen 14 mg/dL (8-23); C Reactive Protein 106.4 mg/L (0.0-4.9); Calcium 8.6 mg/dL (8.5-10.5); Carbon Dioxide 22 mmol/L (22-29); Chloride 100 mmol/L (98-107); Globulin 3.3 g/dL (1.3-4.6); Glomerular Filtration Rate 101.6 mL/min (90-130); Glucose 97 mg/dL (65-115); Osmolality Calculated 280 mOsm/kg (285-295); Potassium 4.4 mmol/L (3.5-5.1); Sodium 135 mmol/L (136-145); Total Bilirubin 0.5 mg/dL (0.15-1.2); Total Protein 6.6 g/dL (6.6-8.7)
--- NOTE | 2021-04-04 08:01 | PC.NURSE ---
Patient's blood pressure is 93/53. rechecked in both arms. Informed patient's nurse, Brandi.
--- NOTE | 2021-04-04 08:20 | P.PN_ITS ---
Subjective Subjective: Interval history: Lurdes reports she feels a little bit better than yesterday. Still short of breath with any exertion. No syncope. Medications: Reviewed: Yes Vitals/I&O/Wt Last Vital Signs Temp 97.5 F L 04/04/21 08:00 Pulse 73 04/04/21 08:00 Resp 16 04/04/21 08:00 BP 93/53 04/04/21 08:00 Pulse Ox 90 04/04/21 08:00 04/03/21 04/04/21 04/04/21 22:59 06:59 14:59 Intake Total 280 / 280 Output Total 680 / 680 Balance 280 / 280 -680 / -400 Weight last 48 hrs Weight 70.307 kg Physical Exam Narrative: EXAM NARRATIVE: General exam is a female, no distress Neck is supple no lymphadenopathy or thyromegaly Cardiovascular regular rate and rhythm, no murmur Lungs few dry crackles bilaterally Abdomen is soft, positive bowel sounds. No obvious organomegaly exam is deferred Extremities no cyanosis clubbing or edema, cap refill brisk Data : 04/04/21 05:19 04/04/21 05:19 A&P Assessment and plan (1) Pneumonia due to COVID-19 virus: Associated with hypoxia Continue remdesivir Continue dexamethasone. Note the patient has been on this since the , orally CRP improving. As patient clinically feels better and has not worsened as far as oxygen requirement will hold off on Actemra currently. Will not order CRP tomorrow, unless she clinically worsens. Pulmonary toilet, incentive spirometry Prone when possible Combivent 4 times daily Continue empiric doxycycline sputum culture normal bina Procalcitonin level normal Status: Acute Additional A&P Information Reported syncope. This may have been due to hypoxia. No arrhythmias noted currently Transaminitis, likely secondary to Covid. Continue to follow. Without any abdominal symptomatology doubt this is related to gallstones. Liver function tests improving. Repeat CMP tomorrow. Cholelithiasis. No evidence of cholecystitis currently. Full code Lovenox for DVT prophylaxis Attestations Medical Necessity Statement*: Needs continued hospitalization for further treatment secondary to COVID-19 pneumonia with hypoxia. 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
[2021-04-04] MEDS: doxycycline 100 mg Tablet PO ×2 (08:34→19:01)
[2021-04-04] MEDS: dexamethasone 10 mg/mL INJ 6 MG IVP (08:34)
[2021-04-04] MEDS: enoxaparin 40 mg/0.4 mL Syringe SUBCUT (16:46)
[2021-04-04] MEDS: remdesivir 100 MG in sodium chloride 0.9% (100 ml) 80 ML IV (19:01)
[2021-04-05] VITALS (9 sets, daily range): BP systolic 89–102; BP diastolic 54–58; PULSE 67–89; RESP 16–20; TEMP 36.4–37.1; O2SAT 92–96
[2021-04-05 06:55] LABS: Alanine Aminotransferase 117 U/L (0-33); Albumin Level 3.2 g/dL (3.5-5.2); Alkaline Phosphatase 142 IU/L (35-105); Aspartate Amino Transferase 40 U/L (0-32); Blood Urea Nitrogen 17 mg/dL (8-23); Calcium 8.5 mg/dL (8.5-10.5); Carbon Dioxide 24 mmol/L (22-29); Chloride 101 mmol/L (98-107); Globulin 3.2 g/dL (1.3-4.6); Glomerular Filtration Rate 85.1 mL/min (90-130); Glucose 99 mg/dL (65-115); Osmolality Calculated 284 mOsm/kg (285-295); Sodium 136 mmol/L (136-145); Total Bilirubin 0.4 mg/dL (0.15-1.2); Total Protein 6.4 g/dL (6.6-8.7)
[2021-04-05] MEDS: dexamethasone 10 mg/mL INJ 6 MG IVP (08:50)
[2021-04-05] MEDS: doxycycline 100 mg Tablet PO ×2 (08:51→17:41)
--- NOTE | 2021-04-05 10:23 | PC.NURSE ---
Patient's mother called, but was not on the PHI form to discuss any information. transferred the call in the room to speak with the patient.
[2021-04-05] MEDS: lactated ringers 1,000 ML 999 ML IV (12:43)
[2021-04-05] MEDS: enoxaparin 40 mg/0.4 mL Syringe SUBCUT (14:08)
--- NOTE | 2021-04-05 16:33 | PM.PN ---
Subjective Subjective: Interval history: Seen and examined this morning, she was doing well on 3.5 L however this morning blood pressure was low give her 1 L bolus she is not endorsing active shortness of breath or chest pain, positive lethargy and fatigue Vitals/I&O/Wt Last Vital Signs Temp 98.3 F 04/05/21 15:07 Pulse 81 04/05/21 15:07 Resp 17 04/05/21 15:07 BP 102/58 04/05/21 15:07 Pulse Ox 94 04/05/21 15:07 04/05/21 04/05/21 04/05/21 06:59 14:59 22:59 Intake Total 200 / 320 620 / 620 Balance 200 / -280 620 / 620 Physical Exam Narrative: EXAM NARRATIVE: Patient was saturating well on 3.5 L Bilateral breath sound without adventitious rhonchi or crackles EOMI, PERRLA Nonfocal neuro exam No audible stridor or wheezing S1, S2 Looks dehydrated No active distress Data : 04/04/21 05:19 04/05/21 06:08 A&P Assessment and plan (1) Pneumonia due to COVID-19 virus: Status: Acute (2) COVID-19: Status: Acute (3) Hypotension: Status: Acute Additional A&P Information Hypotension related to dehydration we will give 1 L bolus, patient is denying nausea, vomiting or diarrhea COVID-19 related acute hypoxia: Doing well on 3.5 L, plan to discharge her in next 24 hours if clinically stays stable and blood pressure is stable Regular diet Full code DVT prophylaxis on board Attestations Medical Necessity Statement*: Plan to discharge in next 24 hours Time Spent in Patient Care: less than 15 minutes Coding Level of Care Code Acute 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
[2021-04-05] MEDS: acetaminophen 325 mg Tablet 650 MG PO (17:40)
[2021-04-05] MEDS: remdesivir 100 MG in sodium chloride 0.9% (100 ml) 80 ML IV (17:40)
[2021-04-05] MEDS: sodium chloride 0.9% 1,000 ML 75 ML IV (17:41)
[2021-04-06] VITALS (7 sets, daily range): BP systolic 91–126; BP diastolic 50–79; PULSE 64–89; RESP 16–17; TEMP 36.4–37; O2SAT 91–95
[2021-04-06 05:27] LABS: Basophils % 0.2 %; Eosinophils % 0.2 %; Hematocrit 37.5 % (37.0-47.0); Hemoglobin 11.9 g/dL (11.5-15.3); Lymphocytes # 1.6 10^3/uL (0.8-4.8); Lymphocytes % 24.8 %; Mean Corpuscular HGB Conc 31.7 g/dL (30.0-36.0); Mean Corpuscular Hemoglobin 28.5 pg (28.0-34.0); Mean Corpuscular Volume 89.9 fl (81-99); Mean Platelet Volume 9.4 fL (7.4-10.4); Monocytes # 0.5 10^3/uL (0.2-0.9); Monocytes % 8.4 %; Neutrophils # 4.13 10^3/uL (1.8-7.7); Neutrophils % 65.6 %; Nucleated Red Blood Cells % 0 %; Platelet Count 275 10^3/cmm (130-400); Red Blood Count 4.17 10^6/uL (4.1-5.3); Red Cell Distribution Width 13.6 % (12.1-15.1); White Blood Count 6.3 10^3/uL (4.0-10.0)
[2021-04-06 05:45] LABS: Anion Gap 14.2 (5-19); Blood Urea Nitrogen 14 mg/dL (8-23); Calcium 7.7 mg/dL (8.5-10.5); Carbon Dioxide 25 mmol/L (22-29); Chloride 102 mmol/L (98-107); Glomerular Filtration Rate 101.6 mL/min (90-130); Glucose 99 mg/dL (65-115); Osmolality Calculated 285 mOsm/kg (285-295); Potassium 4.2 mmol/L (3.5-5.1); Sodium 137 mmol/L (136-145); Thyroid Stimulating Hormone 1.59 uIU/mL (0.27-4.20)
[2021-04-06 06:19] LABS: Slide Review Slide Review Perform
[2021-04-06] MEDS: lactated ringers 1,000 ML 999 ML IV (08:50)
[2021-04-06] MEDS: dexamethasone 10 mg/mL INJ 6 MG IVP (08:52)
[2021-04-06] MEDS: doxycycline 100 mg Tablet PO (08:52)
[2021-04-06] MEDS: acetaminophen 325 mg Tablet 650 MG PO (08:55)
[2021-04-06] MEDS: sodium chloride 0.9% 1,000 ML 75 ML IV (10:06)
--- NOTE | 2021-04-06 11:59 | P.DS_ITS ---
Discharge Providers Date of Admission: 04/03/21 10:53 Date of Discharge: April 06, 2021 Attending Provider at Admission: Clifford Hurd MD Attending Provider at Discharge: Sebastian Mi MD Diagnoses at Discharge Discharge Diagnosis (1) Pneumonia due to COVID-19 virus: Status: Acute (2) COVID-19: Status: Acute (3) Hypotension: Status: Acute Reason for Visit Reason for Visit: COVID +, SOB Hospital Course Hospital Course History of Present Illness by Dr. Hurd Lurdes Syed is a 60 year old female who presents to the hospital with testing positive for Covid on March 29. She had been ill since around the . Symptoms include cough, fever, shortness of breath, fatigue and malaise. She was originally started on oxygen on the , and with worsening symptomatology had been back to the ER on the as well as today. She reports lately she has been losing consciousness with exertion. This has occurred over the last 3 to 4 days. She reports she has been trying to continue to eat and drink but it has been difficult. She is not vaccinated, nor has she had Covid in the past. is ill with Covid as well. Hospital course Patient was admitted for management of hypoxic respiratory failure related to COVID-19. During her hospitalization she was given remdesivir and steroids, she was given fluids for her hypotension, PE was ruled out she did not meet criteria for sepsis, no signs of cardiogenic shock or autonomic dysfunction. With IV fluid hydration her blood pressure did respond adequately. She was given midodrine and asked to increase salt and fluid intake for next few days. She was discharged on 2 L of oxygen. She remained afebrile, white count 6.3, TSH 1.5. AST and ALT improved as well, I do suspect remdesivir associated side effect. She did not experience any right upper quadrant pain with her diet. Physical Exam Narrative: EXAM NARRATIVE: Pleasant female Appears stated age Clinically dehydrated S1, S2 Doing well on 2 L nasal cannula No focal neuro exam deficit Abdomen soft No skin rash No scleral icterus Discharge Data Data Completed and Pending: Completed Studies During Hospitalization Category Date Time Status XR chest 1V alyssa ble [id number] Stat Exams 04/03/21 09:47 Completed Pending at discharge Category Date Time Status Sputum Culture an d Gram Stain Stat Lab 04/03/21 09:47 Uncollected Labs from last 24 hours 04/06/21 04/06/21 04:44 04:44 WBC 6.3 RBC 4.17 Hgb 11.9 Hct 37.5 MCV 89.9 MCH 28.5 MCHC 31.7 RDW 13.6 Plt Count 275 MPV 9.4 Neut % (Auto) 65.6 Lymph % (Auto) 24.8 [place] % (Auto) 8.4 Eos % (Auto) 0.2 Baso % (Auto) 0.2 Neut # (Auto) 4.13 Lymph # (Auto) 1.6 [place] # (Auto) 0.5 Eos # (Auto) 0.0 Baso # (Auto) 0.0 Nucleated RBC % (a uto) 0 Nucleated RBCs # 0.0 Sodium 137 Potassium 4.2 Chloride 102 Carbon Dioxide 25 Anion Gap 14.2 BUN 14 Creatinine 0.6 GFR Calculation 101.6 Glucose 99 Calculated Osmolal ity 285 Calcium 7.7 L TSH 1.59 Vitals: Last Vital Signs Temp 98.6 F 04/06/21 11:20 Pulse 85 04/06/21 11:43 Resp 16 04/06/21 11:43 BP 100/61 04/06/21 11:20 Pulse Ox 95 04/06/21 11:43 Discharge Plan Discharge Patient Disposition: Home Condition: Stable Prescriptions: New midodrine 5 mg tablet 5 mg PO TID Qty: 15 RF: 0 Medrol (Paulo) 4 mg tablets,dose pack See Rx Instructions .ROUTE .COMPLEX Qty: 21 RF: 0 albuterol sulfate 90 mcg/actuation HFA aerosol inhaler 1 inh inhalation Q6H Qty: 8.5 RF: 0 Continued promethazine 25 mg tablet 25 mg PO Q6H PRN (Reason: nausea and vomiting) Qty: 20 RF: 0 acetaminophen 500 mg Tablet 1,000 mg PO Q4H PRN (Reason: Pain) RF: 0 Vitamin C 500 mg Tablet 500 mg PO DAILY RF: 0 zinc 50 mg Tablet 50 mg PO DAILY RF: 0 Vitamin D3 2 - 3 cap PO DAILY RF: 0 Discontinued dexamethasone 6 mg tablet 6 mg PO DAILY Qty: 7 RF: 0 Discharge Orders: Discharge Order (Routine); Ordered 04/06/21 Ordered By: Sebastian Mi Referrals: [facility](Meals On Wheels) [Other] (Call this number to see about getting Meals on Wheels. ) Discharge Diet: Regular Discharge Activity: Increase activity as tolerated Patient Instructions: Methylprednisolone (By mouth) (Medrol, Medrol Dosepak), Midodrine (By mouth), Hypotension (DC), Pneumonia (DC), COVID-19 (Coronavirus Disease 2019) (DC), Opioid Safety Discharge Attestations Time Spent in Discharge Care*: less than 30 min Quality Metrics Clinical Quality Measures During this hospital stay, did patient experience: None Coding Level of Care Code Acute g FW DC note Diagnoses Pneumonia due to COVID-19 virus U07.1; J12.82 COVID-19 U07.1 Hypotension I95.9
== END 2021-04-06 14:00 | disposition home or self-care (01) | DRG 177 ==
LOC: ER 10:50 → MEDSURG 11:47
PROVIDERS: Admitting Provider Internal Medicine; Emergency Provider Family Medicine; Visit Provider Internal Medicine
DX: U07.1 COVID-19 (principal); J12.82 Pneumonia due to coronavirus disease 2019; I95.9 Hypotension, unspecified; E86.0 Dehydration
CPT/HCPCS: 36415; 36600; 71045; 80048; 80051; 80053; 82330; 82550; 82805; 84145; 84443; 85025; 86140; 94640; 96365; 96372; 96375; 99291; J1100; J1650; J3535; J7030

== ENCOUNTER 2021-05-05 08:51 | Outpatient (CLI) | payer SELFPAY ==
--- NOTE | 2021-05-05 08:58 | XR_ITS ---
WS: [id number] Exam: XR chest 2V* [id number] Date/Time of Exam: 05/05/2021 8:59 AM Reason For Exam: COVID-19 CORONAVIRUS PNEUMONIA Comparison 04/03/2021. Previously noted bilateral pulmonary infiltrates have resolved. The lungs are clear and fully inflate d. Normal cardiomediastinal structures and regional bony elements. No pleural effusion. XR/XR chest 2V* [id number] IMPRESSION: 1. Resolved bilateral pulmonary infiltrates since the last exam. Negative chest .
== END 2021-05-05 08:52 | disposition home or self-care (01) ==
PROVIDERS: Visit Provider Family Medicine
DX: Z00.00 Encounter for general adult medical examination without abnormal findings (principal); U07.1 COVID-19
CPT/HCPCS: 71046

== ENCOUNTER 2021-12-18 10:49 | Outpatient (CLI) | payer SELFPAY ==
--- NOTE | 2021-12-18 11:04 | MM_ITS ---
WS: [id number] SCREENING DIGITAL BREAST TOMOSYNTHESIS MAMMOGRAM WITH CAD HISTORY: SCREENING COMPARISON: 08/12/2012, 07/18/2012 Bilateral CC and MLO with tomosynthesis and synthetic mammography submitted. Computer aided detection analyzed. Breast composition: The breasts are heterogeneously dense, which may obscure small masses. Well-circu mscribed ovoid 5.8 mm nodule in the anterior LEFT breast at 3:00. This was not seen on the prior stud y. MM/[place] [id number] IMPRESSION: BI-RADS: 0-Incomplete: Need additional imaging evaluation FOLLOW UP: Need Additional Imaging Recommendation: Limited LEFT breast ultrasound, 3:00 axis to evaluate an ovoid nodule measuring 5.8 mm.
== END 2021-12-18 10:50 | disposition home or self-care (01) ==
LOC: RAD 10:50
PROVIDERS: PCP Nurse Practitioner Family; Visit Provider Nurse Practitioner Family
DX: Z12.31 Encounter for screening mammogram for malignant neoplasm of breast (principal)
CPT/HCPCS: 77063; 77067

== ENCOUNTER 2021-12-22 14:13 | Outpatient (CLI) | payer SELFPAY ==
--- NOTE | 2021-12-22 | US_ITS ---
WS: [id number] ULTRASOUND LEFT BREAST HISTORY: Abnormal LEFT mammogram. LEFT breast nodule at 3:00. COMPARISON: 12/18/2021 TECHNIQUE: 2-D and Doppler. Ultrasound of the LEFT breast at 3:00 near the areolar is performed. There is a simple cyst at the 3: 00 axis measuring 7 x 6 x 7 mm. Additional smaller cyst 1 cm from the nipple with a maximum diameter of 3 mm. No solid or suspicious mass. This does correspond to the mammographic abnormality. US/US breast LT limited* [id number] IMPRESSION: BI-RADS: 2-Benign FOLLOW-UP: 1 Year Follow-up
== END 2021-12-22 14:14 | disposition home or self-care (01) ==
LOC: RAD 14:15
PROVIDERS: PCP Nurse Practitioner Family; Visit Provider Nurse Practitioner Family
DX: R92.8 Other abnormal and inconclusive findings on diagnostic imaging of breast (principal); N63.25 Unspecified lump in the left breast, overlapping quadrants
CPT/HCPCS: 76642

== ENCOUNTER 2023-01-28 08:06 | Outpatient (CLI) | payer SELFPAY ==
--- NOTE | 2023-01-28 08:13 | MM_ITS ---
WS: [id number] VIEWS: MLO and CC views both breasts. 3D digital tomosynthesis is also included in this exam. Comparison made with prior exam of 07/18/2012, 12/18/2021.. Findings: There was no sign of mass, architectural distortion or suspicious calcification in either breast. Sta ble appearing nodular density in the anterior lateral LEFT breast. This has proven to represent a cys t on recent ultrasound. The breasts are heterogeneously dense which may obscure small masses. Impression: MM/[place] [id number] BI-RADS: 2-Benign finding. FOLLOW-UP: 1 Year Follow-up This mammogram was also analyzed by the Computer Aided Detection System R2 [employer].
== END 2023-01-28 08:07 | disposition home or self-care (01) ==
LOC: MOBLMAM 08:12
PROVIDERS: PCP Nurse Practitioner Family; Visit Provider Nurse Practitioner Family
DX: Z12.31 Encounter for screening mammogram for malignant neoplasm of breast (principal)
CPT/HCPCS: 77063; 77067

== ENCOUNTER 2024-05-16 10:54 | Outpatient (CLI) | payer MEDICARE, SELFPAY ==
--- NOTE | 2024-05-16 11:03 | MM_ITS ---
WS: [id number] Bilateral screening 3D tomosynthesis digital mammogram, 05/16/2024 11:06 AM Clinical Data: SCREENING Comparison: 12/28/2022, 12/18/2021, 08/12/2012, 07/18/2012. Findings: No spiculated masses or clustered calcifications are seen. There are no secondary signs of carcinoma . MM/MM scr BI tomosynthesis [id number] Impression: Negative bilateral mammogram unchanged. Recommend annual screening mammograms. BIRADS: 1 - Negative FOLLOW UP: 1 Year Follow-up DENSITY: The breasts are heterogeneously dense, which may obscure small masses. The CAD frequency checker was used
== END 2024-05-16 10:55 | disposition home or self-care (01) ==
LOC: RAD 10:57
PROVIDERS: PCP Nurse Practitioner Family; Visit Provider Nurse Practitioner Family
DX: Z12.31 Encounter for screening mammogram for malignant neoplasm of breast (principal)
CPT/HCPCS: 77063; 77067

== ENCOUNTER → 2024-10-26 12:20 | Outpatient (BNVA) | payer SELFPAY | PROVIDERS: PCP Nurse Practitioner Family; Visit Provider Dermatology | DX: Z01.89 Encounter for other specified special examinations (principal) | CPT/HCPCS: 80053 ==

== ENCOUNTER → 2025-03-16 10:37 | Outpatient (BNVA) | payer MEDICARE, SELFPAY | PROVIDERS: Visit Provider Podiatrist Foot & Ankle Surgery | DX: L60.0 Ingrowing nail (principal); L60.3 Nail dystrophy | CPT/HCPCS: 11750; A6219; J9999 ==

== ENCOUNTER → 2025-03-28 08:47 | Outpatient (BNVA) | payer MEDICARE, SELFPAY | PROVIDERS: Visit Provider Podiatrist Foot & Ankle Surgery | DX: L60.0 Ingrowing nail (principal); L60.3 Nail dystrophy | CPT/HCPCS: 99213 ==